=== PATIENT | female | born 1980 | race African-American/Black ===

== ENCOUNTER 2016-09-15 19:08 | Emergency (ER) | payer MEDICAID ==
--- NOTE | 2016-09-15 20:25 | ED Physician Documentation ---
PD HPI BACK PAIN - Stated complaint Stated Complaint: BACK PX - Chief complaint Chief Complaint: Back Pain - History obtained from History obtained from: Patient - History of Present Illness Timing - onset: How many weeks ago (2-3) Timing - details: Gradual onset, Waxing and waning Pain level now: 8 Location: Lower, Right Quality: Pain, Spasm, Similar to prior episodes Associated symptoms: No: Fever, Weakness, Numbness, Incontinent of urine, Unable to urinate, Hematuria, Incontinent of stool Improves with: Rest, Position Worsened by: Movement, Twisting Recently seen: Not recently seen - Additional information Additional information: c/o right-sided low back pain x 2-3 week, distinctly worse with movement. It has gradually spread to involve the entire right back up to the neck, and down to right buttock and down right LE. 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 Medications Home Medications: Ambulatory Orders Medication Instructions Recorded Confirmed Methocarbamol [Robaxin] 750 mg PO Q4HR PRN 09/15/16 09/15/16 diazePAM [Valium] 5 - 10 mg PO TID PRN #15 tablet 09/15/16 oxyCODONE/ACET 5/325 [Percocet 5 1 - 2 each PO Q6H PRN #14 tablet 09/15/16 mg/325 mg] - Allergies Allergies/Adverse Reactions: Allergies Allergy/AdvReac Type Severity Reaction Status Date / Time clindamycin Allergy Intermediate Edema Verified 09/15/16 19:17 Penicillins Allergy swelling Verified 09/15/16 19:17 - Social History Does the pt smoke?: Yes Smoking Status: Current every day smoker Does the pt drink ETOH?: No Does the pt have substance abuse?: No - Immunizations Immunizations are current?: Yes - POLST Patient has POLST: No PD ED PE NORMAL - Vitals Vital signs reviewed: Yes - General General: Alert and oriented X 3, No acute distress (NAD at rest, appears to have painful discomfort with movement involving her back), Well developed/ nourished - Cardiac Cardiac: RRR, No murmur - Respiratory Respiratory: No respiratory distress - Abdomen Abdomen: Soft, Non tender - Back Back: No CVA TTP, No spinal TTP - Derm Derm: Normal color, Warm and dry, No rash - Extremities Extremities: No edema - Neuro Neuro: No motor deficit, No sensory deficit Results - Vitals Vitals: Vital Signs - 24 hr 09/15/16 09/15/16 19:12 21:18 Temperature 36.6 C 36.5 C Heart Rate 78 68 Respiratory 18 18 Rate Blood Pressure 114/71 125/85 H O2 Saturation 99 100 Oxygen O2 Source Room air PD MEDICAL DECISION MAKING - ED course Complexity details: considered differential, d/w patient Departure - Departure Disposition: 01 Home, Self Care Clinical Impression: Low back pain Qualifiers: Chronicity: acute Back pain laterality: right Sciatica presence: with sciatica Sciatica laterality: sciatica of right side Qualified Code(s): M54.41 - Lumbago with sciatica, right side Condition: Good Instructions: ED Sciatica Follow-Up: [facility] [Provider Group] (Call to arrange for next available appointment) Prescriptions: oxyCODONE/ACET 5/325 [Percocet 5 mg/325 mg] 1 - 2 each PO Q6H PRN #14 tablet PRN Reason: Pain diazePAM [Valium] 5 - 10 mg PO TID PRN #15 tablet PRN Reason: Spasms Discharge Date/Time: 09/15/16 21:18
[2016-09-15] MEDS ORDERED: oxyCODONE/ACET 5/325 Prepack 4 PO STA (20:42)
[2016-09-15] MEDS ORDERED: oxyCODONE/ACET 5/325 Prepack 4 PO ONE (20:51)
[2016-09-15 21:20] VITALS: BP 125/85
== END 2016-09-15 21:18 | disposition home or self-care (01) ==
LOC: ED 19:08
DX: M54.41 Lumbago with sciatica, right side (principal); J45.909 Unspecified asthma, uncomplicated; F17.200 Nicotine dependence, unspecified, uncomplicated
CPT/HCPCS: 99283

== ENCOUNTER 2016-09-20 14:29 | Emergency (ER) | payer MEDICAID ==
[2016-09-20] MEDS ORDERED: KETOROLAC 60 MG/2 ML VIAL IVP STA (16:19)
[2016-09-20 16:20] LABS: BILIRUBIN,URINE NEGATIVE (NEGATIVE); PH,URINE 6.5 PH (5.0-7.5)
--- NOTE | 2016-09-20 16:20 | ED Physician Documentation ---
History of Present Illness - Stated complaint Stated Complaint: UNSTABLE/BURNING IN ABD - Chief complaint Chief Complaint: Abd Pain - Additonal information Additional information: hx from pt ruq pain and back pain for a month no fever no NVD pain and diff with both urination and BM denies preg pain is so severe she cannot eat or walk normally seen by PMD several times and referred to ER by PMD today - to testing done so far seen in ER as well for back pain and rx mm relaxant which has not helped no numbness or weakness Review of Systems Constitutional: denies: Fever, Chills GI: reports: Abdominal Pain, Constipation. denies: Nausea, Vomiting, Diarrhea, Bloody / black stool : reports: Dysuria, Hesitancy. 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 - Present Medications Home Medications: Ambulatory Orders Medication Instructions Recorded Confirmed Bisacodyl Supp [Dulcolax Supp] 10 mg PA DAILY PRN #4 supp 09/20/16 Dicyclomine [Bentyl] 10 mg PO Q8H PRN #20 capsule 09/20/16 Magnesium Citrate 295 ml PO ONCE PRN #1 solution 09/20/16 - Allergies Allergies/Adverse Reactions: Allergies Allergy/AdvReac Type Severity Reaction Status Date / Time clindamycin Allergy Intermediate Edema Verified 09/15/16 19:17 Penicillins Allergy swelling Verified 09/15/16 19:17 - Social History Does the pt smoke?: Yes Smoking Status: Current every day smoker Does the pt drink ETOH?: No Does the pt have substance abuse?: No - Immunizations Immunizations are current?: Yes - POLST Patient has POLST: No PD ED PE NORMAL - Vitals Vital signs reviewed: Yes - General General: Alert and oriented X 3 - HEENT HEENT: PERRL - Neck Neck: Supple, no meningeal sign - Cardiac Cardiac: RRR - Respiratory Respiratory: No respiratory distress, Clear bilaterally - Abdomen Abdomen: Soft, Other (severe RUQ TTP, no rash) - Back Back: Other (diffuse TTP and limited ROm, no rash) - Extremities Extremities: Other (denies saddle anesthesia, hip flex, knee ext, foot dorsi plantar and great toe ext all 5/5, no clonus, patellar DTR 2/4, nl sensation) Results - Vitals Vitals: Vital Signs - 24 hr 09/20/16 09/20/16 09/20/16 14:37 16:42 18:11 Temperature 36.5 C Heart Rate 67 60 44 L Respiratory 18 18 16 Rate Blood Pressure 134/77 H 127/70 112/83 H O2 Saturation 100 100 100 Oxygen O2 Source Room air - Labs Labs: Laboratory Tests 09/20/16 09/20/16 09/20/16 16:05 16:30 16:30 WBC 10.4 RBC 4.46 Hgb 13.4 Hct 40.1 MCV 89.8 MCH 30.1 MCHC 33.5 RDW 14.4 Plt Count 353 MPV 8.0 Neut # 6.8 H Lymph # 2.7 Frontier # 0.7 Eos # 0.1 Baso # 0.1 Absolute Nucleated RBC 0.01 Nucleated RBCs 0.1 Sodium 137 Potassium 3.5 Chloride 104 Carbon Dioxide 27 Anion Gap 6.0 BUN 11 Creatinine 0.8 Estimated GFR (MDRD) 100 Glucose 76 Calcium 9.3 Total Bilirubin 0.5 AST 30 ALT 29 Alkaline Phosphatase 69 Total Protein 7.9 Albumin 4.2 Globulin 3.7 Albumin/Globulin Ratio 1.1 Lipase 17 L Urine Color YELLOW Urine Clarity CLEAR Urine pH 6.5 Ur Specific [place] 1.010 Urine Protein NEGATIVE Urine Glucose (UA) NEGATIVE Urine Ketones NEGATIVE Urine Occult Blood TRACE-LYSE Urine Nitrite NEGATIVE Urine Bilirubin NEGATIVE Urine Urobilinogen 0.2 (NORMAL) Ur Leukocyte Esterase NEGATIVE Ur Microscopic Review NOT INDICATED Urine Culture Comments NOT INDICATED Urine HCG, Qual NEGATIVE - Rads (name of study) sono Radiology: See rad report (nl GB) CT AP Radiology: See rad report (fat containing umbilical hernia, degen changes L45, no acute process) PD MEDICAL DECISION MAKING - ED course ED course: no relief with toradol but better with ofirmev Departure - Departure Disposition: 01 Home, Self Care Clinical Impression: Abdominal pain Qualifiers: Abdominal location: right upper quadrant Qualified Code(s): R10.11 - Right upper quadrant pain Condition: Good Instructions: ED Abdominal Pain Unkn Cause Follow-Up: Alex Hanna PA-C [Primary Care Provider] - Prescriptions: Dicyclomine [Bentyl] 10 mg PO Q8H PRN #20 capsule PRN Reason: stomach cramps Bisacodyl Supp [Dulcolax Supp] 10 mg PA DAILY PRN #4 supp PRN Reason: Constipation Magnesium Citrate 295 ml PO ONCE PRN #1 solution PRN Reason: Constipation Comments: All of the tests today came back fine. The urine showed no infection or blood to suggest a kidney stone The blood work including kidney liver and pancreas function was fine. The ultrasound did not show any gallstones The CT scan did not show any gallstones or kidney stones, no pancreatitis, no aneurysm, no bowel infection/perforation/obstruction, no internal bleeding or free fluid, normal size ovaries. You do have a small umbilical hernia btu it does not contain any bowel so it is not a danger right now. And the CT showed you have some degenerative changes in your soine I am not sure what is causing the pain But given the extensive and reassuring workup, I do not think you need surgery or admission or antibiotics. I think it is safe for you to go home and to get any further work up as an outpatient It is very possible that over time, new or changing symptoms may develop that lead to a diagnosis not presently apparent. That is why close follow up with your PMD for a recheck is very important I would suggest you and your PMD consider a test called a HIDA scan to evaluate the gallbladder function - that test is not available tonight through the ER Recommend a low fat diet. I have prescribed to medications to ease your constipation And a medication called bentyl to ease the pains. I do not recommend any strong pain killers because I do not want to mask changing or worsening symptoms - also narcotics will worsen the urinary retention and constipation Forms: Activity restrictions
[2016-09-20 16:23] LABS: UA CHARGE (STRIP ONLY) YES; UR CULTURE IF IND NOT INDICATED
[2016-09-20 16:24] LABS: HCG UR QUAL NEGATIVE
[2016-09-20] MEDS ORDERED: KETOROLAC 30 MG/ML VIAL ONE (16:39)
[2016-09-20 16:49] LABS: BASOPHILS # (AUTO) 0.1 10^3/uL (0.0-0.1); BASOPHILS % (AUTO) 0.9 %; EOSINOPHILS # (AUTO) 0.1 10^3/uL (0.0-0.7); EOSINOPHILS % (AUTO) 1.2 %; HCT - HEMATOCRIT 40.1 % (37.0-47.0); HGB - HEMOGLOBIN 13.4 g/dL (12.0-16.0); LYMPHOCYTES # (AUTO) 2.7 10^3/uL (1.5-3.5); LYMPHOCYTES % (AUTO) 26.2 %; MEAN CORPUSCULAR HEMOGLOBIN 30.1 pg (27.0-31.0); MEAN CORPUSCULAR HGB CONC 33.5 g/dL (32.0-36.0); MEAN CORPUSCULAR VOLUME 89.8 fL (81.0-99.0); MONOCYTES # (AUTO) 0.7 10^3/uL (0.0-1.0); MONOCYTES % (AUTO) 6.9 %; NEUTROPHILS # (AUTO) 6.8 10^3/uL (1.5-6.6); NEUTROPHILS % (AUTO) 64.8 %; NUCLEATED RED BLOOD CELLS AUTO 0.1 /100WBC; RED BLOOD COUNT 4.46 10^6/uL (4.20-5.40); RED CELL DISTRIBUTION WIDTH 14.4 % (12.0-15.0); UNCORRECTED WHITE BLOOD COUNT 10.4 x10^3/uL; WHITE BLOOD COUNT 10.4 x10^3/uL (4.8-10.8)
[2016-09-20 16:56] LABS: ALBUMIN/GLOBULIN RATIO 1.1 (1.0-2.2); BILIRUBIN,TOTAL 0.5 mg/dL (0.2-1.0); CALCIUM 9.3 mg/dL (8.5-10.3); CREATININE 0.8 mg/dL (0.4-1.0); POTASSIUM 3.5 mmol/L (3.5-5.0); TOTAL PROTEIN 7.9 g/dL (6.7-8.2)
[2016-09-20] MEDS ORDERED: ACETAMINOPHEN 1,000 MG/100 ML 100 ML IV ONE ×2 (17:28→17:32)
--- NOTE | 2016-09-20 18:27 | Ultrasound Preliminary Report ---
Exam: US Abdomen Limited IMPRESSION: 1. Prominent liver with mild fatty change. 2.. No cholelithiasis or cholecystitis. [facility] SITE ID: [id number]
--- NOTE | 2016-09-20 18:30 | Ultrasound Report ---
EXAM: ABDOMEN ULTRASOUND LIMITED, RUQ EXAM DATE: 09/20/2016 06:07 PM. CLINICAL HISTORY: Right upper quadrant pain and burning for one month. COMPARISON: None. TECHNIQUE: Real-time scanning was performed with static images obtained. FINDINGS: Liver: Normal in size. Mildly echogenic echotexture. 19.6 cm. Main portal vein flow: Hepatopetal. Gallbladder: Normal. No stones, wall thickening, or sonographic Mack's sign. Biliary System: CBD measures 3 mm. No intrahepatic or extrahepatic ductal dilatation. Other: The visualized pancreas and right kidney unremarkable. No free fluid. IMPRESSION: 1. Prominent liver with mild fatty change. 2.. No cholelithiasis or cholecystitis. [facility] Referring Provider Line: [phone] SITE ID: [id number]
[2016-09-20] MEDS ORDERED: IOPAMIDOL-300 100 ML VIAL IVP ONE (18:48)
--- NOTE | 2016-09-20 19:19 | CT Preliminary Report ---
Exam: CT Abdomen/Pelvis W/ IMPRESSION: Degenerative disk disease at L4-L5. Small fat-containing umbilical hernia. Otherwise unre markable abdomen and pelvis CT. [facility] SITE ID: [id number]
--- NOTE | 2016-09-20 19:21 | CT Report ---
EXAM: CT ABDOMEN AND PELVIS EXAM DATE: 09/20/2016 06:51 PM. CLINICAL HISTORY: Right sided abdomen pain. GB sono negative. COMPARISONS: None. TECHNIQUE: Routine helical CT imaging was performed through the abdomen and pelvis. IV contrast: Amt/ type. Enteric contrast: No. Reconstructions: Coronal and sagittal. In accordance with CT protocol optimization, one or more of the following dose reduction techniques w ere utilized for this exam: automated exposure control, adjustment of mA and/or KV based on patient s ize, or use of iterative reconstructive technique. FINDINGS: Lung Bases: Unremarkable. Liver: Normal. No masses. Gallbladder/Bile Ducts: Unremarkable. Spleen: Normal. Pancreas: Normal. Adrenal Glands: Normal. Kidneys: Normal. No masses or hydronephrosis. Peritoneal Cavity/Bowel: Normal. No free fluid, free air or adenopathy. No masses or acute inflammato ry process. The appendix is well visualized and normal. Pelvic Organs: Normal. The bladder and visualized pelvic organs are within normal limits. Vasculature: No aneurysms or other significant abnormality. Bones: Degenerative disk disease at L4-L5. Other: Small fat-containing umbilical hernia. IMPRESSION: Degenerative disk disease at L4-L5. Small fat-containing umbilical hernia. Otherwise unre markable abdomen and pelvis CT. [facility] Referring Provider Line: [phone] SITE ID: [id number]
[2016-09-20 19:52] VITALS: BP 117/83
[2016-09-20] MEDS ORDERED: LIDOCAINE PATCH 5% TOP STA (20:15)
[2016-09-20] MEDS ORDERED: LIDOCAINE PATCH 5% TOP ONE (20:19)
== END 2016-09-20 20:28 | disposition home or self-care (01) ==
LOC: ED 14:29
DX: R10.11 Right upper quadrant pain (principal); R00.1 Bradycardia, unspecified; R94.31 Abnormal electrocardiogram [ECG] [EKG]; Z82.49 Family history of ischemic heart disease and other diseases of the circulatory system; J45.909 Unspecified asthma, uncomplicated; F17.200 Nicotine dependence, unspecified, uncomplicated
CPT/HCPCS: 36415; 74177; 76705; 80053; 81003; 81025; 83690; 85025; 93005; 96365; 96375; 99284; A9270; J0131; Q9967; 81001; 87086

== ENCOUNTER 2017-01-27 20:28 | Emergency (ER) | payer MEDICAID ==
[2017-01-27 20:53] VITALS: BP 122/72
--- NOTE | 2017-01-27 22:24 | ED Physician Documentation ---
PD HPI ABD PAIN - Stated complaint Stated Complaint: BURNING SENSATION ON STOMACH - Chief complaint Chief Complaint: Abd Pain - History obtained from History obtained from: Patient - History of Present Illness Timing - onset: How many days ago (worse and more consistent the past several days/week.), How many months ago (1-2) Timing - details: Gradual onset, Intermittant Quality: Other (burning) Location: Epigastric Radiation: No: Chest, , Lower back, Left flank, Left shoulder, Other, Right flank, Right shoulder, Upper back Improved by: Meds (benadryl and mylanta helped initially but not lately.) Worsened by: Eating Associated symptoms: Nausea. No: Fever, Vomiting, Diarrhea, Melena, Hematochezia Similar symptoms before: Has not had sx before Recently seen: Not recently seen Review of Systems Constitutional: denies: Fever, Chills Nose: denies: Rhinorrhea / runny nose, Congestion Throat: denies: Sore throat Cardiac: denies: Chest pain / pressure, Palpitations Respiratory: denies: Dyspnea, Cough GI: reports: Abdominal Pain, Nausea. 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 Home Medications: Ambulatory Orders Medication Instructions Recorded Confirmed Famotidine [Pepcid] 20 mg PO BID #40 tablet 01/27/17 Lidocaine Viscous 2% [Xylocaine 5 ml PO Q4H PRN #1 bottle 01/27/17 Viscous 2%] Sucralfate 1 gm PO QID #30 tablet 01/27/17 Tramadol HCl 50 mg PO Q6H PRN #20 tablet 01/27/17 - Allergies Allergies/Adverse Reactions: Allergies Allergy/AdvReac Type Severity Reaction Status Date / Time clindamycin Allergy Intermediate Edema Verified 01/27/17 20:52 Penicillins Allergy swelling Verified 01/27/17 20:52 - Social History Does the pt smoke?: Yes Smoking Status: Current every day smoker Does the pt drink ETOH?: No Does the pt have substance abuse?: No - Immunizations Immunizations are current?: Yes - POLST Patient has POLST: No PD ED PE NORMAL - Vitals Vital signs reviewed: Yes - General General: Alert and oriented X 3, No acute distress, Well developed/nourished - HEENT HEENT: Pharynx benign - Neck Neck: Supple, no meningeal sign, No adenopathy - Cardiac Cardiac: RRR, No murmur - Respiratory Respiratory: Clear bilaterally - Abdomen Abdomen: Normal bowel sounds, Soft, Non distended, No organomegaly, Other (mild epigastric tender without guarding nor percussion tenderness. ) - Derm Derm: Normal color, Warm and dry - Extremities Extremities: No deformity, No tenderness to palpate, Normal ROM s pain, No calf tenderness / cord - Neuro Neuro: Alert and oriented X 3, No motor deficit, Normal speech Results - Vitals Vitals: Oxygen O2 Source Room air PD MEDICAL DECISION MAKING - ED course Complexity details: re-evaluated patient (improved with GI cocktail.), considered differential (seems very gastritis symptoms.), d/w patient Departure - Departure Disposition: 01 Home, Self Care Clinical Impression: Reflux gastritis Condition: Stable Record reviewed to determine appropriate education?: Yes Instructions: ED Gastritis Prescriptions: Famotidine [Pepcid] 20 mg PO BID #40 tablet Lidocaine Viscous 2% [Xylocaine Viscous 2%] 5 ml PO Q4H PRN #1 bottle PRN Reason: Pain Sucralfate 1 gm PO QID #30 tablet Tramadol HCl 50 mg PO Q6H PRN #20 tablet PRN Reason: Pain Comments: Avoid ibuprofen as this can worsen gastritis. It sounds like an irritated stomach with some reflux. We will treated with famotidine which is a different type of medicine than the Prilosec you have had before. This is meant to reduce the stomach acids. Sucralfate is used several times a day to coat the stomach more consistently and will do this for 5-7 days as well. You can use lidocaine mixed with Mylanta to help reduce the stomach pain. Add Tylenol or tramadol if needed. Follow-up with your primary care in about a week to see how well this is improving and if it needs a change in therapy. Discharge Date/Time: 01/27/17 23:28
[2017-01-27] MEDS ORDERED: LIDOCAINE VISCOUS 2% 15 ML UDC MM STA (22:57)
[2017-01-27] MEDS ORDERED: traMADol 50 MG TABLET PO STA (22:57)
[2017-01-27] MEDS ORDERED: FAMOTIDINE 20 MG TABLET PO STA (22:57)
[2017-01-27] MEDS ORDERED: MAG HYDROX/AL HYDROX/SIMETH 30 ML UDC PO STA (22:57)
[2017-01-27] MEDS ORDERED: SUCRALFATE 1 GM/10 ML UDC PO STA (22:58)
[2017-01-27] MEDS ORDERED: FAMOTIDINE 20 MG TABLET ONE (23:10)
[2017-01-27] MEDS ORDERED: traMADol 50 MG TABLET PO ONE (23:10)
[2017-01-27] MEDS ORDERED: SUCRALFATE 1 GM/10 ML UDC ONE (23:11)
[2017-01-27] MEDS ORDERED: MAG HYDROX/AL HYDROX/SIMETH 30 ML UDC ONE (23:11)
[2017-01-27] MEDS ORDERED: LIDOCAINE VISCOUS 2% 15 ML UDC MM ONE (23:11)
== END 2017-01-27 23:28 | disposition home or self-care (01) ==
LOC: ED 20:28
DX: K21.9 Gastro-esophageal reflux disease without esophagitis (principal); F17.200 Nicotine dependence, unspecified, uncomplicated
CPT/HCPCS: 99283; A9270